=== PATIENT | female | born 1975 | race Caucasian/White ===

== ENCOUNTER → 2016-05-07 | Outpatient (CLI) | payer OTHER ==
--- NOTE | 2016-05-07 10:27 | RAD ---
Indication neck pain. AP lateral odontoid and a swimmer's view of the cervical spine were obtained. No prior imaging of the cervical spine as. With the addition of a swimmer's view C1 through the upper half of C7 are identified. C7 is not optimally visualized despite obtaining the swimmer's view. Through visualized segments vertebral height and disc spaces are unremarkable. Significant degenerative changes are not seen. An acute finding is not apparent and the prevertebral soft tissues appear normal. IMPRESSION: Suboptimal visualization of C7. No definite significant bony finding seen in the cervical spine
--- NOTE | 2016-05-07 14:24 | RAD ---
Chest, 2 views, 05/07/2016: History: Cough, smoking history The heart size and pulmonary vascularity are normal. No pulmonary infiltrate is seen. There is no evidence of pleural fluid. IMPRESSION: No acute cardiopulmonary abnormality is detected.
== END | disposition home or self-care (01) ==
LOC: RAD 09:12
PROVIDERS: ATTEND Surgery
DX: J44.9 Chronic obstructive pulmonary disease, unspecified (principal); Z87.891 Personal history of nicotine dependence; R05 Cough
CPT/HCPCS: 71020; 72040